=== PATIENT | female | born 1975 | race Caucasian/White ===

== ENCOUNTER 2024-11-21 14:40 | Inpatient (IN) | payer BC ==
[2024-11-21] MEDS ORDERED: Naloxone 0.4 MG/ML SDV IVPUSH PRN (15:24)
[2024-11-21 15:35] LABS: BASOPHILS ABSOLUTE AUTO 0.1 K/mm3 (0.0-0.2); BASOPHILS PERCENT AUTO 0.5 % (0.0-1.0); EOSINOPHILS ABSOLUTE AUTO 1.2 K/mm3 (0.0-0.4); EOSINOPHILS PERCENT AUTO 7.3 % (0.0-6.0); IMMATURE GRAN ABSOLUTE AUTO 0.05 K/mm3 (0.00-0.05); IMMATURE GRAN PERCENT AUTO 0.3 % (0.0-0.4); LYMPHOCYTES ABSOLUTE AUTO 1.4 K/mm3 (1.0-4.8); LYMPHOCYTES PERCENT AUTO 8.5 % (24.0-44.0); MEAN PLATELET VOLUME 9.0 fl (9.4-12.3); MONOCYTES ABSOLUTE AUTO 1.0 K/mm3 (0.0-0.8); MONOCYTES PERCENT AUTO 6.0 % (0.0-8.0); NEUTROPHILS ABSOLUTE AUTO 12.3 K/mm3 (1.8-7.7); NEUTROPHILS PERCENT AUTO 77.4 % (41.0-71.0); NRBC ABSOLUTE 0.00 (0.00-0.02); NRBC PERCENT 0.0 % (0.0-0.2); PLATELET COUNT,PLT 341 K/mm3 (150-400); RED BLOOD CELL COUNT 4.66 M/mm3 (4.10-5.30); WHITE BLOOD CELL COUNT,WBC 15.92 K/mm3 (3.9-11.3)
[2024-11-21 15:37] LABS: APPEARANCE,URINE CLEAR (Clear); GLUCOSE,URINE NEGATIVE (Negative); OCCULT BLOOD,URINE 2+ (Negative)
[2024-11-21] MEDS: Ondansetron 4 MG/2 ML SDV IVPUSH ONE (15:37)
[2024-11-21] MEDS: Sodium Chloride 0.9% 10 ML Syringe FLUSH PRN (15:38)
[2024-11-21 15:46] LABS: YEAST BUDDING,URINE RARE (NOT SEEN)
[2024-11-21 16:01] LABS: A/G RATIO 1.1 (1-2); ALANINE AMINOTRANSFERASE,ALT 35.0 U/L (14-59); ASPARTATE AMNIOTRANSFERASE,AST 19.0 U/L (15-37); BILIRUBIN TOTAL 0.6 mg/dL (0.2-1.0); BLOOD UREA NITROGEN,BUN 25.0 mg/dL (7-18); CARBON DIOXIDE,CO2 28.0 mEq/L (21-32); CHLORIDE,CL 104.0 mEq/L (98-107); CREATININE 1.1 mg/dL (0.55-1.02); EST CRCL DRUG DOSING (CG) 43.95 mL/min; ESTIMATED GFR 61.0 mL/min (>60); GLUCOSE RANDOM 103.0 mg/dL (70-99); POTASSIUM,K 3.7 mEq/L (3.5-5.1); PROTEIN TOTAL,TP 6.8 g/dl (6.4-8.2); SODIUM,NA 141.0 mEq/L (136-145)
[2024-11-21] MEDS: Iopamidol 612 MG/ML 100 ML Bottle IVPUSH ONE (16:21)
[2024-11-21] MEDS: Sodium Chloride 0.9% 10 ML Syringe FLUSH ONE (16:21)
[2024-11-21 18:07] LABS: PTT,PARTIAL THROMBOPLSTIN TIME 21.6 SECONDS (21.7-31.4)
[2024-11-21 18:09] LABS: INR < 0.93
[2024-11-21] MEDS: Iopamidol 755 Mg/ML 100 ML Bottle IVPUSH ONE (19:03)
[2024-11-21] MEDS: Acetaminophen/HYDROcodone 325-5 MG Tab PO PRN (23:59)
[2024-11-22] MEDS: Ondansetron 4 MG/2 ML SDV IVPUSH PRN
[2024-11-22] MEDS ORDERED: LORazepam 2 MG/ML SDV IVPUSH PRN (01:06)
[2024-11-22] MEDS: LORazepam 2 MG/ML SDV IVPUSH PRN (01:29)
[2024-11-22 05:51] LABS: MEAN PLATELET VOLUME 9.3 fl (9.4-12.3); NRBC ABSOLUTE 0.00 (0.00-0.02); NRBC PERCENT 0.0 % (0.0-0.2); PLATELET COUNT,PLT 268 K/mm3 (150-400); RED BLOOD CELL COUNT 4.34 M/mm3 (4.10-5.30); WHITE BLOOD CELL COUNT,WBC 16.41 K/mm3 (3.9-11.3)
[2024-11-22 06:02] LABS: A/G RATIO 1.0 (1-2); ALANINE AMINOTRANSFERASE,ALT 98.0 U/L (14-59); ASPARTATE AMNIOTRANSFERASE,AST 143.0 U/L (15-37); BILIRUBIN TOTAL 0.7 mg/dL (0.2-1.0); BLOOD UREA NITROGEN,BUN 17.0 mg/dL (7-18); CARBON DIOXIDE,CO2 26.0 mEq/L (21-32); CHLORIDE,CL 108.0 mEq/L (98-107); CREATININE 1.0 mg/dL (0.55-1.02); EST CRCL DRUG DOSING (CG) 48.34 mL/min; ESTIMATED GFR 69.0 mL/min (>60); GLUCOSE RANDOM 122.0 mg/dL (70-99); PHOSPHORUS 4.1 mg/dL (2.6-4.7); POTASSIUM,K 3.8 mEq/L (3.5-5.1); PROTEIN TOTAL,TP 6.1 g/dl (6.4-8.2); SODIUM,NA 141.0 mEq/L (136-145)
[2024-11-22] MEDS: Magnesium Sulfat/D5W 1GM/100ML 1 GM in Premix Bag 1 BAG IV ONE (10:07)
[2024-11-22] MEDS: Potassium Chloride 20 MEQ Tab.ER PO ONE (10:09)
[2024-11-22] MEDS: Gadobenate Dimeglumine 529 MG/ML 15 ML SDV IVPUSH ONE (14:53)
[2024-11-22] MEDS: Sodium Chloride 0.9% 10 ML Syringe FLUSH ONE (15:00)
[2024-11-23] MEDS: Lactated Ringers 1,000 ML IV SCH (00:59)
[2024-11-23 07:11] LABS: BASOPHILS ABSOLUTE AUTO 0.0 K/mm3 (0.0-0.2); BASOPHILS PERCENT AUTO 0.2 % (0.0-1.0); EOSINOPHILS ABSOLUTE AUTO 0.5 K/mm3 (0.0-0.4); EOSINOPHILS PERCENT AUTO 2.3 % (0.0-6.0); IMMATURE GRAN ABSOLUTE AUTO 0.09 K/mm3 (0.00-0.05); IMMATURE GRAN PERCENT AUTO 0.4 % (0.0-0.4); LYMPHOCYTES ABSOLUTE AUTO 1.3 K/mm3 (1.0-4.8); LYMPHOCYTES PERCENT AUTO 6.1 % (24.0-44.0); MEAN PLATELET VOLUME 8.8 fl (9.4-12.3); MONOCYTES ABSOLUTE AUTO 1.7 K/mm3 (0.0-0.8); MONOCYTES PERCENT AUTO 8.0 % (0.0-8.0); NEUTROPHILS ABSOLUTE AUTO 17.6 K/mm3 (1.8-7.7); NEUTROPHILS PERCENT AUTO 83.0 % (41.0-71.0); NRBC ABSOLUTE 0.00 (0.00-0.02); NRBC PERCENT 0.0 % (0.0-0.2); PLATELET COUNT,PLT 223 K/mm3 (150-400); RED BLOOD CELL COUNT 4.06 M/mm3 (4.10-5.30); WHITE BLOOD CELL COUNT,WBC 21.26 K/mm3 (3.9-11.3)
[2024-11-23 07:36] LABS: A/G RATIO 0.8 (1-2); ALANINE AMINOTRANSFERASE,ALT 105.0 U/L (14-59); ASPARTATE AMNIOTRANSFERASE,AST 93.0 U/L (15-37); BILIRUBIN TOTAL 0.9 mg/dL (0.2-1.0); BLOOD UREA NITROGEN,BUN 12.0 mg/dL (7-18); CARBON DIOXIDE,CO2 28.0 mEq/L (21-32); CHLORIDE,CL 103.0 mEq/L (98-107); CREATININE 1.0 mg/dL (0.55-1.02); EST CRCL DRUG DOSING (CG) 48.34 mL/min; ESTIMATED GFR 69.0 mL/min (>60); GLUCOSE RANDOM 103.0 mg/dL (70-99); PHOSPHORUS 2.3 mg/dL (2.6-4.7); POTASSIUM,K 3.9 mEq/L (3.5-5.1); PROTEIN TOTAL,TP 5.9 g/dl (6.4-8.2); SODIUM,NA 135.0 mEq/L (136-145)
[2024-11-23] MEDS ORDERED: [UNRECOGNIZED DRUG - OTHER] PO SCH (09:00)
[2024-11-23] MEDS: Sennosides/Docusate Sodium 50-8.6 MG Tab PO PRN (14:53)
[2024-11-24 04:51] LABS: BASOPHILS ABSOLUTE AUTO 0.0 K/mm3 (0.0-0.2); BASOPHILS PERCENT AUTO 0.3 % (0.0-1.0); EOSINOPHILS ABSOLUTE AUTO 0.8 K/mm3 (0.0-0.4); EOSINOPHILS PERCENT AUTO 6.0 % (0.0-6.0); IMMATURE GRAN ABSOLUTE AUTO 0.07 K/mm3 (0.00-0.05); IMMATURE GRAN PERCENT AUTO 0.5 % (0.0-0.4); LYMPHOCYTES ABSOLUTE AUTO 1.4 K/mm3 (1.0-4.8); LYMPHOCYTES PERCENT AUTO 9.6 % (24.0-44.0); MEAN PLATELET VOLUME 9.1 fl (9.4-12.3); MONOCYTES ABSOLUTE AUTO 1.3 K/mm3 (0.0-0.8); MONOCYTES PERCENT AUTO 9.0 % (0.0-8.0); NEUTROPHILS ABSOLUTE AUTO 10.5 K/mm3 (1.8-7.7); NEUTROPHILS PERCENT AUTO 74.6 % (41.0-71.0); NRBC ABSOLUTE 0.00 (0.00-0.02); NRBC PERCENT 0.0 % (0.0-0.2); PLATELET COUNT,PLT 207 K/mm3 (150-400); RED BLOOD CELL COUNT 3.84 M/mm3 (4.10-5.30); WHITE BLOOD CELL COUNT,WBC 14.07 K/mm3 (3.9-11.3)
[2024-11-24 05:20] LABS: A/G RATIO 0.7 (1-2); ALANINE AMINOTRANSFERASE,ALT 77.0 U/L (14-59); ASPARTATE AMNIOTRANSFERASE,AST 46.0 U/L (15-37); BILIRUBIN TOTAL 0.6 mg/dL (0.2-1.0); BLOOD UREA NITROGEN,BUN 11.0 mg/dL (7-18); CARBON DIOXIDE,CO2 28.0 mEq/L (21-32); CHLORIDE,CL 104.0 mEq/L (98-107); CREATININE 1.3 mg/dL (0.55-1.02); EST CRCL DRUG DOSING (CG) 37.19 mL/min; ESTIMATED GFR 50.0 mL/min (>60); GLUCOSE RANDOM 95.0 mg/dL (70-99); PHOSPHORUS 2.8 mg/dL (2.6-4.7); POTASSIUM,K 3.5 mEq/L (3.5-5.1); PROTEIN TOTAL,TP 5.5 g/dl (6.4-8.2); SODIUM,NA 137.0 mEq/L (136-145)
[2024-11-24] MEDS: Potassium Phosphates 30 MMOLE in Sodium Chloride 0.9% 500 ML IV SCH (11:48)
[2024-11-25 04:36] LABS: BASOPHILS ABSOLUTE AUTO 0.1 K/mm3 (0.0-0.2); BASOPHILS PERCENT AUTO 0.5 % (0.0-1.0); EOSINOPHILS ABSOLUTE AUTO 1.0 K/mm3 (0.0-0.4); EOSINOPHILS PERCENT AUTO 8.4 % (0.0-6.0); IMMATURE GRAN ABSOLUTE AUTO 0.07 K/mm3 (0.00-0.05); IMMATURE GRAN PERCENT AUTO 0.6 % (0.0-0.4); LYMPHOCYTES ABSOLUTE AUTO 1.3 K/mm3 (1.0-4.8); LYMPHOCYTES PERCENT AUTO 11.1 % (24.0-44.0); MEAN PLATELET VOLUME 9.0 fl (9.4-12.3); MONOCYTES ABSOLUTE AUTO 1.2 K/mm3 (0.0-0.8); MONOCYTES PERCENT AUTO 9.9 % (0.0-8.0); NEUTROPHILS ABSOLUTE AUTO 8.2 K/mm3 (1.8-7.7); NEUTROPHILS PERCENT AUTO 69.5 % (41.0-71.0); NRBC ABSOLUTE 0.00 (0.00-0.02); NRBC PERCENT 0.0 % (0.0-0.2); PLATELET COUNT,PLT 280 K/mm3 (150-400); RED BLOOD CELL COUNT 4.26 M/mm3 (4.10-5.30); WHITE BLOOD CELL COUNT,WBC 11.77 K/mm3 (3.9-11.3)
[2024-11-25 05:05] LABS: A/G RATIO 0.7 (1-2); ALANINE AMINOTRANSFERASE,ALT 62.0 U/L (14-59); ASPARTATE AMNIOTRANSFERASE,AST 28.0 U/L (15-37); BILIRUBIN TOTAL 0.5 mg/dL (0.2-1.0); BLOOD UREA NITROGEN,BUN 12.0 mg/dL (7-18); CARBON DIOXIDE,CO2 31.0 mEq/L (21-32); CHLORIDE,CL 103.0 mEq/L (98-107); CREATININE 1.2 mg/dL (0.55-1.02); EST CRCL DRUG DOSING (CG) 40.29 mL/min; ESTIMATED GFR 55.0 mL/min (>60); GLUCOSE RANDOM 103.0 mg/dL (70-99); PHOSPHORUS 3.8 mg/dL (2.6-4.7); POTASSIUM,K 3.8 mEq/L (3.5-5.1); PROTEIN TOTAL,TP 6.1 g/dl (6.4-8.2); SODIUM,NA 139.0 mEq/L (136-145)
== END 2024-11-25 13:00 | disposition home or self-care (01) | DRG 249 ==
LOC: JD.ED 14:40 → JD.MS 20:58
PROVIDERS: ADMIT Obstetrics & Gynecology; ATTEND Family Medicine
DX: K52.9 Noninfective gastroenteritis and colitis, unspecified (principal); I10 Essential (primary) hypertension; F41.9 Anxiety disorder, unspecified; F32.A Depression, unspecified; K21.9 Gastro-esophageal reflux disease without esophagitis; J45.909 Unspecified asthma, uncomplicated; R74.01 Elevation of levels of liver transaminase levels; E83.39 Other disorders of phosphorus metabolism; E83.42 Hypomagnesemia; Z98.890 Other specified postprocedural states; Z79.899 Other long term (current) drug therapy
CPT/HCPCS: 36415; 72197; 72197-26; 74175; 74175-26; 74177; 74177-26; 74183; 74183-26; 80053; 81001; 81025; 83605; 83735; 84100; 85025; 85027; 85610; 85730; 86140; 87040; 93005; 93246; 93306; 93970; 93970-26; 94760; 94761; 96361; 96374; 96375; 96376; 99285-25; A9270-GY; A9577; J1171; J1650; J2060; J2405; J2543; J3475; J3490; J7030; J7040; J7050; J7120; Q9967